=== PATIENT | male | born 1945 | race Caucasian/White ===

== ENCOUNTER 2016-06-08 04:59 | Inpatient (IN) | payer OTHER ==
[2016-05-20 10:22] VITALS: BMI 27.0
--- NOTE | 2016-05-20 11:25 | PAT Medication Instructions ---
Service Date May 20, 2016. Current Home Medication List Cyanocobalamin (Vitamin B-12), 3,000 MCG PO QPM Multivitamin (Multivitamin), 1 TAB PO QAM Medication Instructions For Your Scheduled Surgery - Hold the following medications the morning of surgery: Multivitamin (Multivitamin), 1 TAB PO QAM - Take the following medications as scheduled the night before surgery: Cyanocobalamin (Vitamin B-12), 3,000 MCG PO QPM If you have any questions please call us at [phone] (Yaneth Briones PA-C) or [phone] or [phone]
[2016-05-20 12:13] LABS: BASO % 0.6 %; BASO ABS # 0.03 K/uL (0-0.2); COMPLETE YES; EOS % 2.1 %; HEMATOCRIT 40.7 % (42-52); IG% 0.6 %; LYMPH % 19.3 %; MEAN CELL VOLUME 88.7 fL (80-100); MEAN CORPUSCULAR HEMOGLOBIN 31.2 pg (25-34); MEAN CORPUSCULAR HGB CONC 35.1 g/dl (32-36); MEAN PLATELET VOLUME 11.2 fL (7.4-10.4); MONO % 8.3 %; NEUT % 69.1 %; PLATELET COUNT 175 K/uL (130-400); RED BLOOD COUNT 4.59 M/uL (4.7-6.1); WHITE BLOOD COUNT 5.17 K/uL (4.8-10.8)
[2016-05-20 12:29] LABS: PROTHROMBIN TIME (PATIENT) 10.3 SECONDS (9.0-12.0)
[2016-05-20 12:31] LABS: BUN/CREATININE RATIO 15.6 (10-20); C-REACTIVE PROTEIN 0.74 mg/dl (0-0.29); CALCIUM 9.3 mg/dl (8.5-10.1); CREATININE 1.5 mg/dl (0.60-1.40); POTASSIUM 4.3 mmol/L (3.5-5.1)
--- NOTE | 2016-05-20 12:39 | DIAGNOSTIC IMAGING REPORT ---
CHEST PREADMISSION(PA/LAT) CLINICAL HISTORY: Preoperative evaluation. COMPARISON STUDY: Chest radiograph February 04, 2011. FINDINGS: Lung volumes are normal. There is no pneumothorax or pleural effusion. Pulmonary vascularity is normal. Lungs are clear. Cardiac size is normal. Mediastinal contours are unremarkable. Slight elevation of the distal right clavicle and widening of the AC joint interval is unchanged. A lucent subchondral focus with rim of sclerosis within the left humeral head could reflect avascular necrosis. There is also possible avascular necrosis within the right humeral head. IMPRESSION: 1. No acute cardiopulmonary findings. 2. 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 Electronically signed by: Ankit Daniels M.D. 05/20/2016 12:38 PM Dictated Date/Time: 05/20/2016 12:36 PM
--- NOTE | 2016-06-02 14:14 | HISTORY & PHYSICAL EXAMINATION ---
DATE OF ADMISSION: 06/08/2016 CHIEF COMPLAINT: Right hip pain. HISTORY OF PRESENT ILLNESS: A 70-year-old gentleman who is very active, who presents with about a 1-year history of increasing right hip pain and discomfort. It all started about a year ago when he was doing some activity and felt like he just strained his groin. He has been seen by a therapist on several occasions without any relief at all. Pain has become more debilitating. He has taken various anti-inflammatories which have not helped either. He has tried Mobic, but irritated his stomach and now just taking ibuprofen. Pain has become more debilitating over time. She describes groin and thigh pain. It is increased with activities. He would like to proceed with surgical treatment of his hip. PAST MEDICAL HISTORY: 1. Arthritis. 2. Low back pain. PAST SURGICAL HISTORY: Include: 1. Hemorrhoidectomy. 2. Bilateral knee replacements done 3 weeks apart [place] [address] Ryan. ALLERGIES: CELEBREX. CURRENT MEDICATIONS: Ibuprofen. SOCIAL HISTORY: A 70-year-old male. He is very active. He is retired. FAMILY HISTORY: Noncontributory. REVIEW OF SYSTEMS: Negative for diabetes, neurologic problems, vascular problems, bleeding disorders. Denies any chest pain, no shortness of breath. No history of DVT or PE. PHYSICAL EXAMINATION: GENERAL: Reveals a healthy, pleasant, middle-aged male, looks younger than his stated age. HEAD, EYES, EARS, NOSE, AND THROAT EXAMINATION: Benign. NECK: Supple. No lymphadenopathy. LUNGS: Clear to auscultation. HEART: Regular rate and rhythm. ABDOMEN: Soft, nontender, nondistended. EXTREMITY EXAMINATION: Grossly neurovascularly intact except as follows: Examination of the right hip and leg reveals the patient walks with a slight bit of a limp. Leg lengths clinically appear pretty equal. He has got a very stiff hip with internal rotation to neutral at best. External rotation 25 degrees. Negative straight leg raise. X-RAYS: X-rays of the right hip were reviewed. It shows advanced right hip DJD. He has got fairly concentric disease. He has got complete loss of joint space. He has got a little bit of cystic changes in the femoral head and acetabulum. He does have some early left hip arthritis as well. ASSESSMENT: A 70-year-old very active, healthy gentleman with advanced right hip degenerative joint disease. He has been through a year of conservative care without much relief. He would like to have his hip replaced. PLAN: We are going to take him to the operating room and do a right total hip replacement. The risks and benefits of this procedure were explained to the patient including but not limited to DVT, PE, , infection, neurological injury, vascular injury, bleeding problems, pain, limited range of motion, stiffness, failure to relieve symptoms, incomplete relief of symptoms, need for further surgery in the future, fracture, leg length inequality, nerve palsy, etc. The patient understands and desires to proceed. Informed consent was obtained. The patient had preoperative workup. Chest x-ray showed no acute disease. There is question of avascular necrosis in the femoral head, but to my viewing they look pretty normal. EKG was normal. Labs were all pretty normal except his creatinine is slightly elevated and his C-reactive protein is slightly elevated. There are no signs of focal infection. We will need to be careful with NSAIDs postoperatively. As far as discharge plans, he is planning to be discharged to home with home health. He is not a candidate for the [facility] home health program apparently.
[~2016-06-08] VITALS: Ht 193 cm; Wt 102.5 kg
[2016-06-08] VITALS (9 sets, daily range): BP systolic 99–166; BP diastolic 74–95; PULSE 54–73; TEMP 36.3–37.1; O2SAT 97–100; Ht 193 cm; Wt 102.5 kg
[~2016-06-08 04:59] MED LIST: CYAN10005 PO; MULT-506 PO
[2016-06-08] MEDS ORDERED: ACETAMINOPHEN 500 MG TAB PO SCH (06:00)
[2016-06-08] MEDS ORDERED: FAMOTIDINE 20 MG TAB PO SCH (06:00)
[2016-06-08] MEDS ORDERED: SCOPOLAMINE 1.5 MG TDSY TD SCH (06:00)
[2016-06-08] MEDS ORDERED: LACTATED RINGER'S 1000ML 1,000 ML IV SCH (06:00)
[2016-06-08] MEDS ORDERED: LACTATED RINGER'S 1000ML IV SCH (06:00)
[2016-06-08] MEDS ORDERED: CEFAZOLIN 2000 MG/60 ML D5W 60 ML IV SCH (06:00)
[2016-06-08] MEDS ORDERED: METOCLOPRAMIDE HCL 10 MG TAB PO SCH (06:00)
[2016-06-08] MEDS ORDERED: BUPIVACAINE LIPOSOME 266 MG, BUPIVACAINE/EPINEPHRINE INJ 50 ML, SODIUM CHLORIDE 0.9% PF... INFIL SCH ×3 (06:00)
[2016-06-08] MEDS ORDERED: GABAPENTIN 300 MG CAP PO SCH (06:00)
[2016-06-08] MEDS ORDERED: TRANEXAMIC ACID INJ 1,000 MG in SODIUM CHLORIDE 0.9% 100ML 100 ML IV SCH (06:00)
[2016-06-08] MEDS ORDERED: BUPIVACAINE 0.5 % 5 MG/1 ML PF 10ML VIAL ONE (06:15)
[2016-06-08] MEDS ORDERED: BUPIVACAINE/EPINEPHRINE 0.5% MPF 1:200,000 30 ML VIAL ONE (06:31)
[2016-06-08] MEDS ORDERED: BACITRACIN 50000 UNIT VIAL ONE (06:32)
[2016-06-08] MEDS ORDERED: MIDAZOLAM HCL 1 MG/ML 2ML VIAL ONE ×3 (06:46→06:48)
--- NOTE | 2016-06-08 06:47 | History & Physical Bridge Note ---
H&P Re-Evaluation Bridge Note: I have examined the patient, reviewed the History & Physical and in the interval since the performance of the History & Physical I have noted the following changes of clinical significance: No changes noted
[2016-06-08] MEDS ORDERED: FENTANYL CITRATE INJ 50 MCG/1 ML 2 ML VIAL ONE (06:48)
[2016-06-08] MEDS ORDERED: PROPOFOL IV EMULSION 10 MG/ML 20 ML VIAL IV ONE (07:58)
[2016-06-08] MEDS ORDERED: PHENYLEPHRINE 100MCG/ML 5ML SYR ONE (07:58)
[2016-06-08] MEDS ORDERED: PHENYLEPHRINE HCL INJ 10 MG/ML VIAL ONE (07:59)
[2016-06-08] MEDS ORDERED: HYDROmorphone INJ 1 MG/ML SYR IV PRN (08:15)
[2016-06-08] MEDS ORDERED: EpHEDrine SULFATE INJ 50 MG/ML AMP IV PRN (08:15)
[2016-06-08] MEDS ORDERED: ONDANSETRON INJ 2 MG/ML 2 ML VIAL IV PRN ×2 (08:15→08:45)
[2016-06-08] MEDS ORDERED: ATROPINE SULFATE 0.1 MG/ML 5ML SYR IV PRN (08:15)
[2016-06-08] MEDS ORDERED: PHENYLEPHRINE 100MCG/ML 5ML SYR IV PRN (08:15)
--- NOTE | 2016-06-08 08:31 | [facility] Post Operative Brief Note ---
Immediate Operative Summary Operative Date Jun 08, 2016. Pre-Operative Diagnosis Advanced Right Hip Degenerative Joint Disease Post-Operative Diagnosis Advanced Right Hip Degenerative Joint Disease Procedure(s) Performed Right Total Hip Arthroplasty--Uncemented Surgeon Dr. Darling Software Licensing Specialist Surgeon(s) KATYA Fuentes Estimated Blood Loss 300 ml Findings Right Hip DJD Fluids (cc crystalloids) 1900 cc Specimens A. Right Femoral Head Drains None Anesthesia Spinal Complication(s) None Disposition Recovery Room / PACU
[2016-06-08] MEDS ORDERED: NO NSAIDS SCH (08:45)
[2016-06-08] MEDS ORDERED: DiphenhydrAMINE HCL 50 MG/ML VIAL IV PRN (08:45)
[2016-06-08] MEDS ORDERED: OXYCODONE HCL IR 5 MG TAB (IMMEDIATE RELEASE) PO PRN (08:45)
[2016-06-08] MEDS ORDERED: MoRPHine SULFATE 2 MG/ML CARP IV PRN (08:45)
[2016-06-08] MEDS ORDERED: ALUMINUM/MAGNESIUM/SIMETH (MAALOX MAX) 30 ML UDC PO PRN (08:45)
[2016-06-08] MEDS ORDERED: SILVER SULFADIAZINE 1% CR 50 GM JAR EXT PRN (08:45)
[2016-06-08] MEDS ORDERED: METOCLOPRAMIDE HCL INJ 5 MG/ML 2 ML VIAL IV PRN (08:45)
[2016-06-08] MEDS ORDERED: MAGNESIUM HYDROXIDE SUSP 30 ML UDC PO PRN (08:45)
[2016-06-08] MEDS ORDERED: ZOLPIDEM TARTRATE 5 MG TAB PO PRN (08:45)
[2016-06-08] MEDS ORDERED: BISACODYL 10 MG SUPP PR PRN (08:45)
[2016-06-08] MEDS ORDERED: TAMSULOSIN HCL 0.4 MG CAP PO PRN (08:45)
--- NOTE | 2016-06-08 08:58 | DIAGNOSTIC IMAGING REPORT ---
AP PELVIS, CROSSTABLE LATERAL RIGHT HIP History: Right total hip arthroplasty. Degenerative arthritis. Postop. FINDINGS: The patient is status post a right total hip arthroplasty. The hardware is intact. No fracture or dislocation. Skin hellen are in place. IMPRESSION: Right total hip arthroplasty. No evidence for hardware complication Electronically signed by: Sundeep Crews M.D. 06/08/2016 8:57 AM Dictated Date/Time: 06/08/2016 8:57 AM
[2016-06-08] MEDS ORDERED: MULTIVITAMIN TAB PO SCH (09:00)
--- NOTE | 2016-06-08 09:08 | OPERATIVE REPORT ---
DATE OF OPERATION: 06/08/2016 SURGEON: Dakota Darling MD TOBACCO ROLLER: KATYA Demarco PREOPERATIVE DIAGNOSIS: Right hip degenerative joint disease. POSTOPERATIVE DIAGNOSIS: Same. PROCEDURE PERFORMED: Right uncemented total hip arthroplasty. COMPLICATIONS: None. ESTIMATED BLOOD LOSS: 300 mL. FLUID REPLACEMENT: 1900 mL crystalloid fluid replacement. ANESTHESIA: Spinal. DRAINS: None. SPECIMENS: Right femoral head sent for pathology. OPERATIVE INDICATIONS: The patient is a 70-year-old very active and healthy gentleman who has about a year history of increasing right hip pain and discomfort. Initially, he thought he had a groin strain. He been treated extensively with conservative care including anti-inflammatory medicines as well as physical therapy without any relief. He limited his NSAID use due to chronic renal disease. He has failed conservative care. X-rays revealed progressive hip arthritis and the patient elected to proceed with a right total hip arthroplasty. OPERATIVE FINDINGS: Operative findings revealed advanced right hip DJD. He had grade 4 [id number] disease of the femoral head and acetabulum. Moderate size joint effusion. OPERATIVE IMPLANTS: Operative implants consisted of: 1. A Biomet G7 size 58-mm acetabular shell. 2. A 6.5 cancellous acetabular screws, 1 at 35 mm length and 1 at 20 mm in length. 3. An apex hole eliminator. 4. A Biomet highly cross-linked polyethylene liner with 58 mm outer diameter and 36 mm inner diameter with a hi placed very inferior and posterior. 5. DePuy size 13.5 large stature high offset femoral stem. 6. A +5/36 mm metal articular ball. OPERATIVE PROCEDURE: The patient was taken to the operating room, identified and placed on the operating table in the supine position. All contact areas were appropriately padded. IV antibiotics were provided by the anesthesia team. A spinal anesthetic had been implemented in the holding area. Yoo catheter was placed in sterile fashion. The patient was then placed in the left lateral decubitus position. An axillary roll was placed. Stulberg hip positioner was used for positioning. The right hip and leg were then prepped and draped in the usual sterile fashion. A posterolateral approach to the right hip was then performed through a curvilinear incision centered over the greater trochanter. Sharp dissection was carried through the subcutaneous tissues down to the level of the IT band and gluteal fascia. The IT band and gluteal fascia were then incised longitudinally in line with skin incision. The underlying greater trochanteric bursa was excised. The piriformis and external rotators were tagged and taken off the posterior aspect of the femur. Great care was taken throughout the procedure to protect the sciatic nerve at all times. Posterior capsulotomy was then performed leaving a large flap for later repair. Hip was internally rotated and dislocated. Femoral neck osteotomy cut was made with the final cut approximately 18 mm above the lesser trochanter. Femoral head was removed and sent for pathology. Attention was then drawn to the acetabulum. The acetabular labrum was excised. The pulvinar fat was excised. Sequential reaming of the acetabulum was then performed beginning with a size 51 and progressing up to 57. A 58-mm Biomet G7 acetabular shell was then placed in about 40 degrees of lateral opening and 20 degrees of anteversion. It was fixed with two 6.5 cancellous acetabular screws. A trial liner was placed. Attention was then drawn to the femur. The proximal femur was entered with cookie cutter followed by canal finder and lateralizing reamer. Reaming of the femur was then performed beginning with a size 9 and progressing up to a 13. We got pretty good chatter at a 13. I broached beginning with a size 10.5 small broach and progressing up to 13.5 large. We got good purchase with this. A calcar reamer was used to smoothen off the calcar. The final calcar cut was 18 mm. We then trialed the hip. I did place a hi on the acetabular liner to maximize stability in flexion and internal rotation. A +5/36 mm articular ball was placed. Hip was fully stable in full extension and external rotation, flexion to 90 degrees, and internal rotation to 60 degrees. Attention was drawn toward placing these components. All trial components were removed. An apex hole eliminator was placed. A highly cross-linked polyethylene liner with a hi placed inferior and posterior was placed. A 13.5 large stature high offset femoral stem was placed. We got excellent scratch fit. A +5/36 mm articular ball was placed. The hip was located and once again found to be stable. Attention was then drawn toward closing. The wound was irrigated with copious amounts of pulsatile lavage solution. I did inject locally with 60 mL of 0.5% Marcaine with epinephrine. The posterior capsule and external rotators were repaired through drill holes in the posterior trochanter with #2 Ti-Cron suture. The IT band and gluteal fascia were then closed with #1 PDS suture in running fashion. The subcutaneous tissues then closed in 2 layers, the deep layer in #1 Vicryl suture and the subcutaneous tissue with 2-0 Dexon suture in a buried interrupted fashion. The skin was closed with skin hellen. Leg was then cleaned and dried and a sterile dressing of Xeroform, 4 x 4's, sterile ABD pad and foam tape was applied. The patient then transferred to the recovery room in stable condition. The patient tolerated the procedure well with no complications. All needle and sponge counts were correct at the end of the operation. I attest to the content of the Intraoperative Record and any orders documented therein. Any exceptio ns are noted below.
--- NOTE | 2016-06-08 09:23 | Anesthesiology Progress Note ---
Anesthesia Post Op Note Date & Time Jun 08, 2016 at 09:23 Vital Signs Pain Intensity: 0 Vital Signs Past 12 Hours Date Time Temp Pulse Resp B/P Pulse Ox O2 Delivery O2 Flow Rate FiO2 06/08/16 09:10 36.2 62 14 107/67 100 Nasal Cannula 2 06/08/16 09:00 62 12 107/65 100 Nasal Cannula 2 06/08/16 08:50 65 14 114/65 100 Nasal Cannula 2 06/08/16 08:40 65 12 104/63 100 Nasal Cannula 2 06/08/16 08:32 36.5 67 18 100/64 99 Nasal Cannula 2 06/08/16 05:46 36.6 68 20 154/95 97 Notes Mental Status: alert / awake / arousable, participated in evaluation Pt Amnestic to Procedure: Yes Nausea / Vomiting: adequately controlled Pain: adequately controlled Airway Patency, RR, SpO2: stable & adequate BP & HR: stable & adequate Hydration State: stable & adequate Anesthetic Complications: no major complications apparent
[2016-06-08] MEDS: PANTOprazole SOD 40 MG TAB PO SCH (11:19)
[2016-06-08] MEDS: MULTIVITAMIN TAB PO SCH (11:19)
[2016-06-08] MEDS: DOCUSATE SODIUM 100 MG CAP PO SCH ×2 (11:20→21:00)
[2016-06-08] MEDS: D5W AND 1/2NSS + 20MEQ KCL 1,000 ML IV SCH ×2 (11:21→17:55)
[2016-06-08] MEDS: FERROUS GLUCONATE 324 MG TAB PO SCH ×2 (12:50→17:55)
[2016-06-08] MEDS: ACETAMINOPHEN 500 MG TAB PO SCH ×2 (13:59→21:07)
[2016-06-08] MEDS ORDERED: TRANEXAMIC ACID INJ 1,000 MG in SODIUM CHLORIDE 0.9% 100ML 100 ML IV ONE (14:30)
[2016-06-08] MEDS: CHECK SCOPOLAMINE PATCH PLACEMENT SCH (14:41)
[2016-06-08] MEDS: CEFAZOLIN IV 2,000 MG in DEXTROSE 5% 50ML 50 ML IV SCH ×2 (14:41→21:08)
[2016-06-08] MEDS: TAPENTADOL ER 50 MG TABCR PO SCH (21:00)
[2016-06-08] MEDS: ASPIRIN 325 MG ECTAB PO SCH (21:06)
[2016-06-08] MEDS: CYANOCOBALAMIN 500 MCG TAB (VIT B-12) PO SCH (21:07)
[2016-06-09] MEDS: D5W AND 1/2NSS + 20MEQ KCL 1,000 ML IV SCH ×2 (00:01→06:32)
[2016-06-09] MEDS: CHECK SCOPOLAMINE PATCH PLACEMENT SCH ×3 (00:01→15:51)
[2016-06-09 03:41] VITALS: BP 124/79; PULSE 79; TEMP 37.1; O2SAT 96
[2016-06-09] MEDS: ACETAMINOPHEN 500 MG TAB PO SCH ×3 (05:42→21:11)
[2016-06-09 06:40] LABS: BASO % 0.1 %; BASO ABS # 0.01 K/uL (0-0.2); COMPLETE YES; EOS % 0.2 %; HEMATOCRIT 30.7 % (42-52); IG% 0.3 %; LYMPH ABS # 0.97 K/uL (1.2-3.4); MEAN CELL VOLUME 86.7 fL (80-100); MEAN CORPUSCULAR HEMOGLOBIN 31.1 pg (25-34); MEAN CORPUSCULAR HGB CONC 35.8 g/dl (32-36); MEAN PLATELET VOLUME 10.7 fL (7.4-10.4); MONO % 10.1 %; NEUT % 78.3 %; PLATELET COUNT 128 K/uL (130-400); RED BLOOD COUNT 3.54 M/uL (4.7-6.1); WHITE BLOOD COUNT 8.79 K/uL (4.8-10.8)
[2016-06-09 07:02] LABS: BUN/CREATININE RATIO 11.8 (10-20); CALCIUM 7.9 mg/dl (8.5-10.1); CREATININE 0.98 mg/dl (0.60-1.40)
[2016-06-09 08:45] VITALS: BP 130/70; PULSE 73; TEMP 36.7; O2SAT 97
[2016-06-09] MEDS: ASPIRIN 325 MG ECTAB PO SCH ×2 (08:50→21:10)
[2016-06-09] MEDS: DOCUSATE SODIUM 100 MG CAP PO SCH ×2 (08:50→21:00)
[2016-06-09] MEDS: FERROUS GLUCONATE 324 MG TAB PO SCH ×3 (08:50→17:58)
[2016-06-09] MEDS: MULTIVITAMIN TAB PO SCH (08:50)
[2016-06-09] MEDS: PANTOprazole SOD 40 MG TAB PO SCH (08:50)
[2016-06-09] MEDS: TAPENTADOL ER 50 MG TABCR PO SCH ×2 (08:55→21:10)
[2016-06-09 09:39] VITALS: O2SAT 97
[2016-06-09 12:05] VITALS: BP 142/74; PULSE 72; TEMP 36.4; O2SAT 99
[2016-06-09 14:56] VITALS: BP 125/71; PULSE 77; TEMP 36.8; O2SAT 96
[2016-06-09] MEDS ORDERED: ACET-1138 PO (19:30)
[2016-06-09] MEDS ORDERED: RXC5 PO (19:30)
[2016-06-09] MEDS ORDERED: ASPEC325 PO (19:30)
--- NOTE | 2016-06-09 19:32 | Discharge Instructions ---
Discharge Instructions Admission Reason for Admission: Right Hip Degenerative Joint Disease Discharge Discharge Diagnosis / Problem: Right Hip Replacement Discharge Goals Goal(s): Decrease discomfort, Improve function, Increase independence, Improve disease control, Therapeutic intervention Activity Recommendations Activity Limitations: per Instructions/Follow-up section (Total Hip Precautions ) Weightbearing Status: Right weightbearing . Instructions / Follow-Up Instructions / Follow-Up ACTIVITY RECOMMENDATIONS: Physical Therapy: * Aggressive physical therapy is not usually needed. You will learn to take care of yourself safely and walk. * Follow the "Hip Precautions Instructions." * In some cases, the social insurance analyst at the hospital will arrange to have a therapist come to your house for the first couple of weeks to help you learn these skills. * You need to practice on your own or with the help of a family member as needed. * When you learn these skills, most of the therapy can be done on your own. Home Exercise: * You were shown a series of exercises in the hospital. Do these exercises three to four times each day including the exercises you were shown in physical therapy. Walking: * Get up and walk several times each day. For the first four weeks, try not to stand or walk for more than one hour at a time. If you do stand or walk for more than one hour, you will not hurt anything, but your leg will likely swell. * As you feel comfortable, you may change from the walker or crutches to a cane and then to independent walking. MEDICATIONS: New Medicine: * You will likely be taking one or more of these medicines: 1. Oxycodone - Take, as directed, when you need it, every four to six hours to control your pain. 2. Aspirin - Thins your blood to lessen the chance of forming a blood clot. * The most common side effects of pain medicine and iron are nausea and constipation. If nausea or constipation is too much of a problem or if you have any questions about your new medicines or doses, call [facility] at [phone]. We will try to help you manage these issues. VERY IMPORTANT TO READ AND REVIEW" Pain: * The immediate post-operative period after hip replacement surgery is often quite painful. * You are given a prescription for pain medicine. You should take it, as directed, when you need it, especially before physical therapy and before going to bed. Pain that interferes with sleep is very common and can last several months. * You will likely need pain medicine for the first two to four weeks. It will not stop all of the pain. The pain will lessen and as you feel better, you may change to milder pain medicine such as Tylenol. * The most common side effects of pain medicine are nausea and constipation, so don't take more than you need. SPECIAL CARE INSTRUCTIONS: TEDs/Elastic Stockings: * The white elastic stockings help limit swelling and prevent blood clots from forming in your legs. The more you wear them, the more they work. * Wear them for six weeks. Prevention of Infection: * Take antibiotics one hour before any dental cleaning, dental work, urological procedure, gastrointestinal procedure or any invasive surgery in order to prevent your new joint from getting infected. * You may get the antibiotics from the doctor performing the procedure or you may call our office at before and we will call in a prescription to the pharmacy of your choice. Things to Watch For: * Drainage from the incision site that occurs more than one week after your surgery. * Severely increased leg pain or swelling. * Increased redness at the incision site. * Fever above 102 degrees Fahrenheit. * Unusual chest pain or shortness of breath. * Unusual pain or burning with urination. Call [facility] at with any of the above problems or if you have any questions about your medicines or recovery. FOLLOW UP VISIT: Make an appointment to see your doctor for approximately two weeks after surgery for a progress check and staple removal by calling the office at . Current Hospital Diet Patient's current hospital diet: Regular Diet Discharge Diet Recommended Diet: Regular Diet Procedures Procedures Performed: Right Total Hip Arthroplasty--Uncemented Pending Studies Studies pending at discharge: no Medical Emergencies . Who to Call and When: Medical Emergencies: If at any time you feel your situation is an emergency, please call [phone] immediately. . Non-Emergent Contact Non-Emergency issues call your: Surgeon . "Provider Documentation" section prepared by Dakota Darling. VTE Core Measure Inpt VTE Proph given/why not?: Other Anticoagulation, T.E.D. Stockings, SCD's
--- NOTE | 2016-06-09 19:45 | PROGRESS NOTE ---
DATE: 06/09/2016 SUBJECTIVE: A 70-year-old gentleman, postop day #1 from right total hip replacement. He is doing pretty well. Pain is controlled. Therapy went pretty well. No chest pain or shortness of breath. Not feeling dizzy or lightheaded. OBJECTIVE: VITAL SIGNS: Temperature is 36.8. Vital signs are stable. GENERAL: Reveals a pleasant, middle-aged male. He is sitting up in his bed and looks comfortable. LUNGS: Clear to auscultation. HEART: Regular rate and rhythm. ABDOMEN: Soft, nontender, nondistended. EXTREMITIES: Grossly neurovascularly intact except as follows: Examination of the right hip and leg reveals the dressing to be clean, dry and intact. His thigh is soft and supple. No significant drainage. Hip is located. He is neurologically intact. LABORATORIES: Hemoglobin 11.0, hematocrit 30.7. Electrolytes are stable. ASSESSMENT: A 70-year-old gentleman, postoperative day #1 from a right total hip replacement, doing well. Pain is controlled. Therapy went pretty well. His hip is located. He is neurologically intact. PLAN: 1. DVT prophylaxis including thigh-high TEDs, SCDs and aspirin twice a day. 2. PT/OT. Weightbearing as tolerated. Right total hip protocol. 3. Pain control, doing pretty well with current pain medicine. He will instead avoid using narcotics. 4. Disposition: Plan to discharge to home once medically stable and ready. [facility]
[2016-06-09] MEDS: CYANOCOBALAMIN 500 MCG TAB (VIT B-12) PO SCH (21:10)
[2016-06-09 23:48] VITALS: BP 117/72; PULSE 74; TEMP 36.6; O2SAT 93
[2016-06-10] MEDS: CHECK SCOPOLAMINE PATCH PLACEMENT SCH
[2016-06-10] MEDS: ACETAMINOPHEN 500 MG TAB PO SCH (05:36)
[2016-06-10 06:09] VITALS: BP 113/74; PULSE 73; TEMP 36.5; O2SAT 96
--- NOTE | 2016-06-10 07:15 | PROGRESS NOTE ---
DATE: 06/10/2016 SUBJECTIVE: 70-year-old gentleman postop day 2 from right total hip replacement. He is doing pretty well. Pain is controlled. Therapy has gone well. OBJECTIVE: VITAL SIGNS: Temperature is 36.5. Vital signs stable. PHYSICAL EXAMINATION: GENERAL: Reveals a healthy, pleasant, middle-aged male. He is sitting up in bed, looks pretty comfortable. EXTREMITIES: Examination of the right hip and leg reveals the leg to be well aligned. Dressing is clean, dry and intact. Thigh is soft and supple. Hip is located. He is neurologically intact. ASSESSMENT: 70-year-old gentleman postop day 2 from a right total hip replacement, doing well. Pain is controlled. PLAN: 1. DVT prophylaxis including thigh-high TEDs, SCDs, and aspirin twice a day. 2. PT/OT. Weightbearing as tolerated. Right total hip protocol. 3. Pain control. Doing pretty well with current pain regimen. 4. Disposition. Plan to discharge to home. He is going to do outpatient therapy.
[2016-06-10] MEDS: MULTIVITAMIN TAB PO SCH (07:34)
[2016-06-10] MEDS: FERROUS GLUCONATE 324 MG TAB PO SCH (07:34)
[2016-06-10] MEDS: ASPIRIN 325 MG ECTAB PO SCH (07:34)
[2016-06-10] MEDS: PANTOprazole SOD 40 MG TAB PO SCH (07:34)
[2016-06-10] MEDS: DOCUSATE SODIUM 100 MG CAP PO SCH (07:34)
[2016-06-10] MEDS: TAPENTADOL ER 50 MG TABCR PO SCH (07:35)
[2016-06-10 08:47] VITALS: BP 113/74; PULSE 73; TEMP 36.5; O2SAT 96
--- NOTE | 2016-06-16 14:19 | DISCHARGE SUMMARY ---
ADMITTING PHYSICIAN AND SURGEON: Dr. Darling. ADMITTING DIAGNOSIS: Right hip degenerative joint disease. SURGERY PERFORMED: Right total hip arthroplasty. SECONDARY DIAGNOSES: Arthritis, low back pain. CONSULTS: None obtained. HISTORY AND PHYSICAL EXAMINATION: Well documented in the patient's chart. HOSPITAL COURSE: The patient admitted on 06/08/2016 underwent total hip arthroplasty, tolerated the procedure well. There were no complications. He was transferred to the PACU postoperatively and later to the orthopedic floor for further care. He was given Ancef for antibiotic prophylaxis, GERMAN stockings, SCDs and aspirin for DVT prophylaxis. Hemoglobin, hematocrit and vital signs were monitored during his hospital stay and remained stable. He developed some postoperative anemia with a hemoglobin of 11.0; did not require blood transfusions. There were no complications. By postoperative day 2, he was tolerating a general diet, pain was controlled with oral pain medicine. He was participating in physical therapy and had no signs or symptoms of deep vein thrombosis. Postop day 2, he was discharged home in good condition, given printed discharge instructions including prescriptions for extra strength Tylenol, aspirin 325 mg b.i.d., oxycodone, continue his home medicines. Continue physical therapy, weightbearing as tolerated. GERMAN stockings, total hip precautions. Follow up in 10-12 days or sooner if there are problems or concerns.
== END 2016-06-10 11:35 | disposition home or self-care (01) | DRG 470 ==
LOC: ENRESERVTM → ENRESERVDT → C.ACU 04:59 → C.3E 06:48
PROVIDERS: ADMIT Orthopaedic Surgery Sports Medicine; ATTEND Orthopaedic Surgery Sports Medicine
PROC: 0SR902A Replacement of Right Hip Joint with Metal on Polyethylene Synthetic Substitute, Uncemented, Open Approach (ICD-10-PCS; principal; 2016-06-08 07:00)
DX: M16.0 Bilateral primary osteoarthritis of hip (principal); Q62.0 Congenital hydronephrosis; M25.451 Effusion, right hip; N18.9 Chronic kidney disease, unspecified; Z96.653 Presence of artificial knee joint, bilateral; Z87.891 Personal history of nicotine dependence

== ENCOUNTER → 2017-02-15 | Outpatient (CLI) | payer OTHER ==
[~2017-02-15] MED LIST changes: +ACET-1138 PO; +ASPEC325 PO; +FUROSEMIDE INJ 10 MG/ML 2 ML VIAL IV ONE; +RXC5 PO
--- NOTE | 2017-02-15 12:03 | DIAGNOSTIC IMAGING REPORT ---
RENAL SCAN DIURETIC (MAG 3) CLINICAL HISTORY: N13.30 Hydronephrosis, [id number] pain TECHNIQUE: Dynamic scanning following the administration of 8.6 mCi technetium 99m MAG3. COMPARISON STUDY: None FINDINGS: Initial flow characteristics are unremarkable. Split renal function shows the left to contribute 52% and the right 48%. Washout characteristics of the left kidney are normal. Partial characteristics of the right kidney are unremarkable are somewhat delayed. There is no evidence for a stiff accumulation. IMPRESSION: 1. Normal evaluation of the left kidney. Normal washout. 2. Normal uptake but somewhat delayed washout of the right kidney suggesting a potential partial UPJ defect. 3.; Renal function is equal [bilaterally The above report was generated using voice recognition software. It may contain grammatical, syntax or spelling errors. Electronically signed by: Neal Escalera M.D. 02/15/2017 12:01 PM Dictated Date/Time: 02/15/2017 11:55 AM
== END | disposition home or self-care (01) ==
LOC: C.NUCL 10:26
PROVIDERS: ATTEND Urology
DX: N13.30 Unspecified hydronephrosis (principal)

== ENCOUNTER → 2017-05-17 | Day surgery (SDC) | payer OTHER ==
[2017-05-06 08:30] VITALS: Ht 193 cm; Wt 100.0 kg
[~2017-05-17] VITALS: Ht 193 cm; Wt 100.0 kg
[~2017-05-17] MED LIST changes: -ACET-1138 PO; -ASPEC325 PO; +ATROPINE SULFATE 0.1 MG/ML 5ML SYR IV PRN; +BUPIVACAINE 0.5 % 5 MG/1 ML MPF 30ML VIAL ONE; +CEFAZOLIN 2000MG IV PUSH 10 ML IV SCH; +CEPH-571 PO; -CYAN10005 PO; +DEXAMETHASONE SOD INJ 4 MG/ML VIAL ONE; +EpHEDrine SULFATE INJ 50 MG/ML AMP IV PRN; +EpHEDrine SULFATE INJ 50 MG/ML AMP ONE; +FENTANYL CITRATE INJ 50 MCG/1 ML 2 ML VIAL IV PRN; +FENTANYL CITRATE INJ 50 MCG/1 ML 2 ML VIAL ONE; -FUROSEMIDE INJ 10 MG/ML 2 ML VIAL IV ONE; +HYDR-5688 PO; +HYDROCODONE/ACETAMOPHEN 5/325MG TAB PO PRN; +LACTATED RINGER'S 1000ML 1,000 ML IV SCH; +LIDOCAINE HCL 2% 2 ML VIAL (20MG/ML) ONE; +MIDAZOLAM HCL 1 MG/ML 2ML VIAL ONE; +MTR800 PO; +ONDANSETRON INJ 2 MG/ML 2 ML VIAL IV PRN; +ONDANSETRON INJ 2 MG/ML 2 ML VIAL ONE; +PROPOFOL IV EMULSION 10 MG/ML 20 ML VIAL IV ONE; -RXC5 PO; +SODIUM CHLORIDE 0.9% 1000ML 1,000 ML IV SCH; +SODIUM CHLORIDE 0.9% INJ 10 ML VIAL ONE
--- NOTE | 2017-05-17 11:57 | [facility] Operative Report ---
Operative Report Operative Date May 17, 2017. Pre-Operative Diagnosis Right inguinal hernia, Right eye skin growth Post-Operative Diagnosis same Procedure(s) Performed Right Inguinal Open Hernia Repair, Right Eyebrow Skin Growth Excision Surgeon Dr. Rush Mobility Architect Manager Surgeon(s) David Mcgraw PA-C Findings Direct Rt inguinal hernia Anesthesia gen/ LMA Complication(s) None Disposition Recovery Room / PACU I attest to the content of the Intraoperative Record and any orders documented therein. Any exceptions are noted below.
--- NOTE | 2017-05-17 12:03 | Discharge Instructions-SurgCtr ---
Discharge Instructions Date of Service May 17, 2017. Visit Reason for Visit: Right Inguinal Hernia; Right Eye Skin Growth Discharge Discharge Diagnosis / Problem: Rt inguinal hernia, nevus Discharge Goals Goal(s): Decrease discomfort, Improve function, Improve disease control Activity Recommendations Activity Limitations: as noted below Lifting Limitations: no more than 25 pounds Exercise/Sports Limitations: until after follow-up appointment May Resume Sexual Activity: when tolerated Shower/Bathe: keep incision dry (may shower over incisions in 2 days- 05/19 ) Driving or Machine Use: 5 days Anesthesia . Post Anesthesia Instructions: If you have had General Anesthesia or IV Sedation: * Do not drive today. * Resume driving when surgeon permits. * Do not make important decisions or sign legal documents today. * Call surgeon for: 1. Temperature elevations greater than 101 degrees F. 2. Uncontrollable pain. 3. Excessive bleeding. 4. Persistent nausea and vomiting. 5. Medication intolerance (nausea, vomiting or rash). * For nausea and vomiting use only clear liquids such as: tea, soda, bouillon until nausea subsides, then gradually increase diet as tolerated. * If you have any concerns or questions, call your surgeon's office. If physician is unavailable and it is an emergency, call 911 or go to the nearest emergency room. . Instructions / Follow-Up Instructions / Follow-Up SPECIAL CARE INSTRUCTIONS: * Cover incisions and change daily for comfort/drainage. * Leave steri strips in place * May use ibuprofen for pain as tolerated. * Expect some swelling and bruising. Call your doctor if: * Temperature above 101 degrees * Pain not relieved by pain medicine ordered * There is increased drainage or redness from any incision * You have any unanswered questions or concerns [phone]. FOLLOW UP VISIT: If not already scheduled, please call the office for a follow-up visit. for next week- some suture removal OFFICE PHONE NUMBER: Dr. Rush Office Diet Recommendations Home Diet: resume previous diet Procedures Procedures Performed: Right Inguinal Open Hernia Repair, Right Eyebrow Skin Growth Excision Pending Studies Studies pending at discharge: no Medical Emergencies . Who to Call and When: Medical Emergencies: If at any time you feel your situation is an emergency, please call 911 immediately. . Non-Emergent Contact Non-Emergency issues call your: Primary Care Provider, Surgeon . . "Provider Documentation" section prepared by Erick Rush. .
--- NOTE | 2017-05-17 12:37 | OPERATIVE REPORT ---
DATE OF OPERATION: 05/17/2017 NAME OF OPERATION: Open right inguinal hernia repair and excision of skin nevus from right forehead. STAFF SURGEON: Dr. Rush. TOBACCO GROWER: Yudelka Mcgraw PA-C. ANESTHESIA: General. PROCEDURE: The patient was brought in the operating room and placed on the operating table in supine position. His right inguinal area was prepped and draped in usual fashion. Then using 0.5% plain Marcaine, skin and subcutaneous tissue were anesthetized. Incision made parallel to the inguinal ligament in the right lower quadrant carrying dissection down through significant adipose tissue, identifying the external oblique fibers. These were incised along their length to the external ring mobilizing the cord structures. The patient did have a direct inguinal hernia which was dissected away from the cord structures and reduced. The defect was secured using a mesh plug which was then secured surrounding tissue using 2-0 Ethibond suture, then a large mesh patch placed over the plug around the cord structures secured using 2-0 Ethibond suture. The site was irrigated with antibiotic solution. Then the external oblique fibers closed over the mesh around the cord structures using 2-0 Ethibond suture, then the subcutaneous tissue reapproximated using 2-0 plain catgut suture then the skin reapproximated using 4-0 nylon suture and Steri-Strips. The nevus on his forehead was approximately 3 mm. It was excised using a scalpel then closed using one 5-0 Prolene suture and then a Steri-Strip. Dressings applied and patient transferred to recovery room in stable condition. As a note, my cafeteria assistant helped with prepping, draping, exposing the hernia, repairing the hernia, closing the wound. I attest to the content of the Intraoperative Record and any orders documented therein. Any exception s are noted below.
[2017-05-17 13:25] VITALS: BP 140/81; PULSE 63; O2SAT 98
--- NOTE | 2017-05-17 13:34 | Anesthesia Progress Nt - [facility] ---
Anesthesia Post Op Note Date & Time May 17, 2017 at 13:33 Vital Signs Pain Intensity: 0 Vital Signs Past 12 Hours Date Time Temp Pulse Resp B/P (MAP) Pulse Ox O2 Delivery O2 Flow Rate FiO2 05/17/17 13:25 63 20 140/81 (100) 98 Room Air 05/17/17 12:52 36.9 66 22 157/94 (115) 98 Room Air 05/17/17 12:41 65 15 121/80 99 05/17/17 12:41 36.4 64 15 05/17/17 12:36 70 18 05/17/17 12:36 71 18 147/90 99 05/17/17 12:31 75 17 147/91 96 05/17/17 12:31 75 17 05/17/17 12:26 69 17 161/91 100 05/17/17 12:26 70 17 05/17/17 12:21 67 11 05/17/17 12:21 67 11 141/85 100 05/17/17 12:16 65 7 152/84 100 05/17/17 12:16 65 7 05/17/17 12:12 36.7 65 16 134/84 99 Mask 6 05/17/17 12:11 83 11 134/84 98 05/17/17 12:11 81 11 05/17/17 09:28 36.8 66 20 138/113 (121) 97 Room Air Notes Mental Status: alert / awake / arousable, participated in evaluation Pt Amnestic to Procedure: Yes Nausea / Vomiting: adequately controlled Pain: adequately controlled Airway Patency, RR, SpO2: stable & adequate BP & HR: stable & adequate Hydration State: stable & adequate Anesthetic Complications: no major complications apparent
== END | disposition home or self-care (01) ==
LOC: X.SURG 08:57
PROVIDERS: ATTEND Surgery
DX: K40.90 Unilateral inguinal hernia, without obstruction or gangrene, not specified as recurrent (principal); B07.9 Viral wart, unspecified; N40.0 Benign prostatic hyperplasia without lower urinary tract symptoms; M19.90 Unspecified osteoarthritis, unspecified site; Z96.659 Presence of unspecified artificial knee joint